=== PATIENT | female | born 1965 | race African-American/Black ===

== ENCOUNTER 2017-01-07 09:04 | Emergency (ER) | payer MEDICAID ==
[~2017-01-07] VITALS: Ht 157.5 cm; Wt 59.0 kg
[~2017-01-07 09:04] MED LIST: ASPI-1159 PO; GLIP5TAB12 PO; INSU3INS6 SQ; LISI2.5T47 PO; METF500T4 PO
[2017-01-07 10:43] VITALS: BP 144/59
== END 2017-01-07 13:24 | disposition home or self-care (01) ==
LOC: ER 10:55
DX: K59.00 Constipation, unspecified (principal); R11.2 Nausea with vomiting, unspecified; E11.9 Type 2 diabetes mellitus without complications; I10 Essential (primary) hypertension; Z79.82 Long term (current) use of aspirin; Z79.4 Long term (current) use of insulin
CPT/HCPCS: 99283

== ENCOUNTER 2018-01-31 07:19 | Emergency (ER) | payer MEDICAID ==
[~2018-01-31] VITALS: Ht 157.5 cm; Wt 58.0 kg
[~2018-01-31 07:19] MED LIST changes: -METF500T4 PO; +METF500T6 PO
[2018-01-31 07:43] VITALS: BP 161/88
== END 2018-01-31 09:43 | disposition home or self-care (01) ==
LOC: ER 07:19
DX: S60.461A Insect bite (nonvenomous) of left index finger, initial encounter (principal); L03.012 Cellulitis of left finger; E11.9 Type 2 diabetes mellitus without complications; I10 Essential (primary) hypertension; W57.XXXA Bitten or stung by nonvenomous insect and other nonvenomous arthropods, initial encounter; Y93.89 Activity, other specified; Y92.89 Other specified places as the place of occurrence of the external cause; Y99.8 Other external cause status; Z79.82 Long term (current) use of aspirin; Z79.4 Long term (current) use of insulin
CPT/HCPCS: 99283